=== PATIENT | male | born 1990 | race Asian ===

== ENCOUNTER 2017-11-13 13:02 | Inpatient (IN) | payer OTHER ==
[~2017-11-13] VITALS: Ht 165.1 cm; Wt 94.3 kg
--- NOTE | 2017-11-13 13:02 | NUR ---
[id number] FROM PRISON FOR WITNESSED SEIZURE. [id number]. +MOUTH TRAUMA, PT IS COMPLAINING OF HEADACHE. ASSISTED TO BED, PLACED ON CONT CARDIAC AND POX MONITORING. WILL CONT TO MONITOR. ROYCE AT BEDSIDE
[2017-11-13 14:08] LABS: BASOPHILS % (AUTO) 0.4 % (0.0-2.0); EOSINOPHILS % (AUTO) 0.9 % (0.0-6.0); HEMATOCRIT 50 % (39-51); HEMOGLOBIN 16.2 g/dL (13.5-17.5); LYMPHOCYTES # (AUTO) 1.3 /CMM (0.8-4.8); LYMPHOCYTES % (AUTO) 17.6 % (20.0-44.0); MEAN CORPUSCULAR HEMOGLOBIN 28 PG (26.0-33.0); MEAN CORPUSCULAR HGB CONC 33 g/dl (31.0-36.0); MEAN CORPUSCULAR VOLUME 87 fL (80-96); MONOCYTES # (AUTO) 0.4 /CMM (0.1-1.30); MONOCYTES % (AUTO) 5.5 % (2.0-12.0); NEUTROPHILS # (AUTO) 5.7 /CMM (1.8-8.9); NEUTROPHILS % (AUTO) 75.6 % (43.0-81.0); PLATELET COUNT (AUTO) 356 /CMM (150-450); RED BLOOD CELL COUNT(AUTO) 5.75 MIL/uL (4.5-6.0); WHITE BLOOD COUNT (AUTO) 7.5 K/uL (4.3-11.0)
[2017-11-13 14:17] LABS: CALCIUM, SERUM 9.3 mg/dL (8.5-10.1); CARBON DIOXIDE 29 mmol/L (21-32); CHLORIDE 104 mmol/L (98-107); CREATININE 0.8 mg/dL (0.6-1.3); GLUCOSE 111 mg/dL (74-106); POTASSIUM 3.8 mmol/L (3.5-5.1); SODIUM SERUM 140 mmol/L (136-145); UREA NITROGEN, BLOOD 11 mg/dL (7-18)
[2017-11-13 14:18] LABS: ALCOHOL, BLOOD < 3 mg/dL (0-0)
[2017-11-13 14:54] LABS: APPEARANCE,URINE Clear (CLEAR); BILIRUBIN,URINE Negative (NEGATIVE); BLOOD, URINE Negative Ery/uL (NEGATIVE); COLOR,URINE Yellow (YELLOW); KETONES,URINE Negative (NEGATIVE); LEUKOCYTE ESTERASE ,URINE Negative (NEGATIVE); NITRITE, URINE Negative (NEGATIVE); PH,URINE 7.5 (5.0-8.0); PROTEIN,URINE Negative (NEGATIVE); UGLUCOSE Negative (NEGATIVE); UROBILINOGEN,URINE 0.2 EU/dL (0.2)
--- NOTE | 2017-11-13 15:27 | NUR ---
[facility] - MULE DRIVER - DANA THOMAS
[2017-11-13] MEDS ORDERED: ACETAMINOPHEN ES 500 MG TABLET PO ONE (15:30)
--- NOTE | 2017-11-13 15:47 | NUR ---
CALLED NURSE SUP FOR TELE BED
[2017-11-13] MEDS ORDERED: ACETAMINOPHEN ES 500 MG TABLET ONE (15:54)
[2017-11-13] MEDS ORDERED: LEVE1000 PO (15:57)
--- NOTE | 2017-11-13 16:24 | NUR ---
REPORT GIVEN TO LORRAINE CARRILLO FOR CONT OF CARE
[2017-11-13] MEDS ORDERED: LEVETIRACETAM (250 MG) 250 MG TABLET PO ONE (16:28)
[2017-11-13] MEDS ORDERED: LEVETIRACETAM SOL (5 ML) 100 MG/ML UDC PO SCH (16:30)
--- NOTE | 2017-11-13 16:40 | NUR ---
STICK ROLLER NOTES RECEIVED PATIENT IN BED RESTING NO SOB OR ACUTE DISTRESS NOTED. PATIENT IN CUSTODY WITH TWO POLICE OFFICERS. PATIENT ALERT, ORIENTED X3. REPORTS FEELING NO SENSATION ON LEFT LEG AND LEFT ARM AND HE STATES HE IS UNABLE TO MOVE BOTH UPPER AND LOWER LEFT EXTREMITIES. PATIENT PLACED IN BED. ORIENTED TO FLOOR AND ROOM. CALL LIGHT WITHIN REACH. PLACED ON TELE MONITORING. WILL CONTINUE TO MONITOR.
[2017-11-13] MEDS ORDERED: BLOOD SUGAR DIAGNOSTIC 1 EACH STRIP IN SCH (17:30)
[2017-11-13] MEDS: BLOOD SUGAR DIAGNOSTIC 1 EACH STRIP IN SCH ×2 (17:32→23:46)
[2017-11-13 18:18] LABS: INR 0.97 (0.87-1.13)
--- NOTE | 2017-11-13 19:45 | NUR ---
TELE/RN OPENING NOTES PT RECEIVED AWAKE, RESTING AND APPEARS COMFORTABLE IN BED. A/OX3. TWO POLICE OFFICERS AT BEDSIDE, PT IN CUSTODY WITH BILATERAL HAND CUFFS. ON ROOM AIR, BREATHING EVEN AND UNLABORED. PT NOTES RIGHT SIDED HEADACHE AND TIGHTNESS TO MIDSTERNUM UPON INSPIRATION. WILL ASK MD FOR PAIN MEDICATION ORDER. PT NOTED WITH SEVERE LEFT ARM AND LEG WEAKNESS, AND LEFT SIDED FACIAL DROOP. ON TELE MONITOR SHOWING SR WITH HR 87. IV TO RAC PATENT AND INTACT. BED IN LOW/LOCKED POSITION, SIDE RAILS UPX2, HOB ELEVATED SEMI FOWLERS. WILL CONTINUE TO MONITOR
[2017-11-13 20:00] VITALS: BP 122/79
--- NOTE | 2017-11-13 20:40 | NUR ---
TELE/RN NOTES PT C/O RIGHT SIDED HEADACHE AND MIDSTERNAL TIGHTNESS UPON INSPIRATION. SPOKE TO ANTHONY DONG. WITH ORDERS FOR MORPHINE 2MG IV Q4H PRN. ORDERS NOTED AND READBACK PER PROTOCOL. WILL ADMINISTER ORDERED.
[2017-11-13] MEDS: MORPHINE SULFATE INJ 4 MG/ML DISP.SYRIN IV PRN (20:56)
[2017-11-13] MEDS ORDERED: LEVETIRACETAM (250 MG) 250 MG TABLET PO SCH (21:00)
--- NOTE | 2017-11-13 21:44 | NUR ---
TELE/RN NOTES SPOKE TO [facility]. CHANGED TIME OF SCHEDULE KEPPRA TO TOMORROW MORNING. PT RECEIVED KEPPRA 1500MG AT 1630 AND FREQUENCY IS Q12H.
[2017-11-14] VITALS: BP 118/73
--- NOTE | 2017-11-14 01:36 | NUR ---
TELE/RN NOTES ANTHONY DONG MADE AWARE OF PT'S HISTORY OF SEIZURES, NO PRN ATIVAN IN THE EVENT OF A SEIZURE. WITH ORDERS FOR 1MG ATIVAN IV Q2H PRN SEIZURE. ORDERS NOTED, WILL CARRY OUT
[2017-11-14] MEDS ORDERED: LORAZEPAM INJ 2 MG/ML VIAL IV PRN (02:00)
[2017-11-14] MEDS: MORPHINE SULFATE INJ 4 MG/ML DISP.SYRIN IV PRN ×2 (02:13→08:54)
--- NOTE | 2017-11-14 02:19 | NUR ---
TELE/RN NOTES PT C/O RIGHT SIDED HEADACHE AND MIDSTERNAL TIGHTNESS UPON INSPIRATION. ADMINISTERED PRN 2MG MORPHINE IV ORDERED
[2017-11-14 04:00] VITALS: BP 112/75
[2017-11-14] MEDS: BLOOD SUGAR DIAGNOSTIC 1 EACH STRIP IN SCH ×3 (06:10→17:39)
--- NOTE | 2017-11-14 06:52 | NUR ---
TELE/RN CLOSING NOTES PT ASLEEP, EASILY AROUSABLE TO NAME. TWO POLICE OFFICERS AT BEDSIDE, IN BILATERAL HAND CUFFS. ALTERNATING HANDS REMOVED FROM HANDCUFFS, GOOD CIRCULATION NOTED. PT STILL WITH SEVERE LEFT ARM AND LEG WEAKNESS, AND LEFT SIDED FACIAL DROOP. REMAINS ON ROOM AIR, BREATHING EVEN AND UNLABORED. PAIN MANAGED WITH PRN MORPHINE 2MG IV. TELE MONITOR SHOWING SR/SB WITH HR 57. IV TO RAC PATENT AND INTACT. BED IN LOW/LOCKED POSITION, SIDE RAILS UPX2, HOB ELEVATED SEMI FOWLERS. NO SIGNIFICANT CHANGES OVERNIGHT. PT WAS CALM AND COOPERATIVE DURING SHIFT. ALL NEEDS MET. WILL ENDORSE TO DAY SHIFT RN ANA
[2017-11-14 07:13] LABS: BASOPHILS % (AUTO) 0.5 % (0.0-2.0); EOSINOPHILS % (AUTO) 3.1 % (0.0-6.0); HEMATOCRIT 46 % (39-51); HEMOGLOBIN 15.5 g/dL (13.5-17.5); LYMPHOCYTES % (AUTO) 32.9 % (20.0-44.0); MEAN CORPUSCULAR HEMOGLOBIN 30 PG (26.0-33.0); MEAN CORPUSCULAR HGB CONC 34 g/dl (31.0-36.0); MEAN CORPUSCULAR VOLUME 89 fL (80-96); MONOCYTES # (AUTO) 0.6 /CMM (0.1-1.30); NEUTROPHILS # (AUTO) 3.2 /CMM (1.8-8.9); NEUTROPHILS % (AUTO) 53.5 % (43.0-81.0); PLATELET COUNT (AUTO) 301 /CMM (150-450); RDW COEFFICIENT OF VARIATION 12.9 (11.5-15.0)
[2017-11-14 07:15] LABS: INR 0.99 (0.87-1.13)
--- NOTE | 2017-11-14 07:24 | NUR ---
FIELD PLACEMENT DIRECTOR NOTES PATIENT RECEIVED RESTING INSIDE ROOM. AWAKE, ALERT AND ORIENTED X 4, VERBALLY RESPONSIVE AND RESPONDS TO VERBAL AND TACTILE STIMULI. BREATHING EVEN AND UNLABORED. NO ACUTE DISTRESS NOTED AT THIS TIME. PATIENT CALM AND RELAXED. NO CHANGES IN LOC NOTED AT THIS TIME. WILL CONTINUE TO MONITOR. BED LOCKED AND IN LOW POSITION. BILATERAL UPPER SIDE RAILS UP AND LOCKED. CALL LIGHT WITHIN EASY REACH
[2017-11-14 07:32] LABS: CALCIUM, SERUM 8.9 mg/dL (8.5-10.1); CREATININE 0.8 mg/dL (0.6-1.3)
[2017-11-14 07:33] LABS: THYROID STIMULATING HORMONE 2.076 uIU/mL (0.358-3.74)
[2017-11-14 08:00] VITALS: BP 100/61
[2017-11-14] MEDS ORDERED: LEVETIRACETAM (250 MG) 250 MG TABLET PO SCH (09:00)
--- NOTE | 2017-11-14 09:50 | NUR ---
ACCOUNTS RECEIVABLE COLLECTOR NOTES PATIENT SEEN AND EXAMINED BY DR. NGUYEN WITH NEW ORDERS FOR CT OF THE HEAD WITH AND WITHOUT CONTRAST, ALSO WITH ORDER TO DC EEG. ORDER NOTED AND CARRIED OUT. PATIENT AWARE AND VERBALIZED UNDERSTANDING. RECEIVED CALL FROM RADIOLOGY AND VERIFIED DR. NGUYEN'S ORDERS IF CT OF HEAD IS WITH OR WITHOUT. INFORMED THAT DR. NGUYEN ORDERED CT WITH AND WITHOUT CONTRAST, ALSO MADE AWARE OF DC'D ORDER OF EEG. WILL CONTINUE TO MONITOR
[2017-11-14] MEDS ORDERED: IOHEXOL-300 100 ML VIAL IV ONE (10:19)
[2017-11-14] MEDS ORDERED: IV NS 0.9% 250 ML IV ONE (10:20)
[2017-11-14] MEDS ORDERED: CT SWABBABLE VALVE TRANS SET 1 EA INFUS.SET MC ONE (10:20)
[2017-11-14] MEDS ORDERED: ACETAMINOPHEN 325 MG TABLET PO PRN (15:40)
--- NOTE | 2017-11-14 15:44 | NUR ---
MS RN NOTES PATIENT WITH ORDER FROM FLAVIA HERRERA CREDIT UNION MANAGER FOR DISCHARGE. ORDER NOTED AND CARRIED OUT. PATIENT MADE AWARE AND VERBALIZED UNDERSTANDING. CASE MANAGEMENT MADE AWARE. PATIENT TO DISCHARGE WITH POLICE CUSTODY. PATIENT ALSO WITH ORDER FROM FLAVIA HERRERA TO [place] MORPHINE IV PRN, TO START ACETAMINOPHEN 650MG PO Q6 PRN FOR FEVER/MILD PAIN. ORDER NOTED AND CARRIED OUT. WILL CONTINUE TO MONITOR
[2017-11-14 16:00] VITALS: BP 96/61
--- NOTE | 2017-11-14 17:34 | NUR ---
Patient is an inmate/custody of [place] [employer]. 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 Clinicals faxed to nurse Champion at [facility] [phone] for approval by [facility] . Addendum: 11/14/17 at 1735 by MICHELLE PALOMARES RN Amended: Links added.
--- NOTE | 2017-11-14 18:55 | NUR ---
MS RN NOTES PATIENT FOR DISCHARGE TODAY. DISCHARGE INSTRUCTIONS AND EDUCATION GIVEN TO PATIENT AND VERBALIZED UNDERSTANDING. PATIENT CALM AND RELAXED. NO CHANGES IN LOC NOTED. IV REMOVED WITH MINIMAL BLEEDING NOTED, PRESSURE DRESSING APPLIED TO SITE. ALL BELONGINGS COMPLETE ON DISCHARGE, NO REPORT OF MISSING INVENTORY. PATIENT TO DISCHARGE BACK TO [facility]. PATIENT LEFT UNIT AT 1855 VIA WHEELCHAIR WITH POLICE CUSTODY. NO SKIN BREAKDOWN NOTED ON DISCHARGE. MD AWARE OF DISCHARGE.
== END 2017-11-14 19:03 | DRG 101 ==
LOC: ER 13:05 → TELE 15:55 → MED 11-14 11:19
PROVIDERS: ADMIT Nurse Practitioner Acute Care; ATTEND Nurse Practitioner Acute Care
DX: G40.909 Epilepsy, unspecified, not intractable, without status epilepticus (principal); G83.84 Todd's paralysis (postepileptic); R53.1 Weakness
CPT/HCPCS: 36415; 70450-TC; 70470-TC; 80048-TC; 80061-TC; 80305; 81000-TC; 82962-TC; 84443-TC; 85025-TC; 85730-TC; 87081-TC; 92611-TC; 97112-TC; A4606; G0480; J2270; J7050; Q9967; Z7610